=== PATIENT | female | born 1970 | race Caucasian/White ===

== ENCOUNTER 2016-04-30 13:22 | Emergency (ER) | payer OTHER, BC ==
[2016-04-30] MEDS ORDERED: KETOROLAC 60 MG/2 ML VIAL IM ONE (15:18)
[2016-04-30] MEDS ORDERED: ONDANSETRON ODT 4 MG TAB ONE (15:18)
== END 2016-04-30 16:40 | disposition home or self-care (01) ==
LOC: ER 13:22
CPT/HCPCS: 96372

== ENCOUNTER 2016-05-02 10:54 | Emergency (ER) | payer BC, OTHER ==
[2016-05-02] MEDS ORDERED: OPTIRAY 350 100 ML VIAL HMH IV ONE (10:55)
[2016-05-02] MEDS ORDERED: ONDANSETRON 4 MG VIAL ONE (11:54)
[2016-05-02] MEDS ORDERED: DILAUDID 1 MG/ML AMP ONE (11:55)
[2016-05-02] MEDS ORDERED: SODIUM CHLORIDE 0.9% 1,000 ML ONE (11:55)
== END 2016-05-02 14:51 | disposition home or self-care (01) ==
LOC: ER 10:54
CPT/HCPCS: 36415; 74177; 80053; 81003; 83690; 84703; 85025; 96361; 96372; 96374; 96375